=== PATIENT | female | born 1970 | race Caucasian/White ===

== ENCOUNTER 2023-06-11 08:47 | Day surgery (SDC) | payer BC ==
[~2023-06-11 08:47] MED LIST: Lactated Ringers 1,000 ML IV SCH; Sodium Chloride 0.9% 10 ML Syringe FLUSH PRN
[2023-06-11] MEDS ORDERED: Sodium Chloride 0.9% 10 ML Syringe FLUSH SCH (09:00)
[2023-06-11] MEDS ORDERED: Midazolam 1 MG/ML 2 ML SDV ONE (09:20)
[2023-06-11] MEDS ORDERED: Propofol 200 MG/20 ML SDV ONE ×2 (09:21)
[2023-06-11] MEDS ORDERED: Lidocaine 1% 4 ML ONE (09:25)
[2023-06-11] MEDS ORDERED: fentaNYL 100 MCG/2 ML SDV ONE (09:47)
== END 2023-06-11 11:28 | disposition home or self-care (01) ==
LOC: JD.SDS 08:47
PROVIDERS: ATTEND Surgery
DX: Z12.11 Encounter for screening for malignant neoplasm of colon (principal); K29.70 Gastritis, unspecified, without bleeding; K21.9 Gastro-esophageal reflux disease without esophagitis; K57.30 Diverticulosis of large intestine without perforation or abscess without bleeding; I10 Essential (primary) hypertension; E78.00 Pure hypercholesterolemia, unspecified; E66.9 Obesity, unspecified; Z68.33 Body mass index [BMI] 33.0-33.9, adult; Z87.891 Personal history of nicotine dependence; Z79.899 Other long term (current) drug therapy; Z88.2 Allergy status to sulfonamides
CPT/HCPCS: 43239; 45378; J2250; J2704; J3010; J7120; J3490